=== PATIENT | female | born 1995 | race African-American/Black ===

== ENCOUNTER 2020-06-21 14:34 | Emergency (ER) | payer MEDICARE, MEDICAID ==
[~2020-06-21] VITALS: Ht 165.1 cm; Wt 91.0 kg
[2020-06-21] MEDS ORDERED: TETANUS, DIPHTHERIA, PERTUSSIS VAC/PF 0.5ML (>7YR OLD) IM ONE (16:15)
[2020-06-21] MEDS ORDERED: HYDROCODONE/ACETAMINOPHEN 5/325MG TABLET PO ONE (16:15)
[2020-06-21 17:30] VITALS: BP 121/60
== END 2020-06-21 17:51 | disposition home or self-care (01) ==
LOC: ER 14:34
DX: S80.811A Abrasion, right lower leg, initial encounter (principal); V43.52XA Car driver injured in collision with other type car in traffic accident, initial encounter; Y93.89 Activity, other specified; Y92.488 Other paved roadways as the place of occurrence of the external cause
CPT/HCPCS: 73590; 90471; 90715; 99285